=== PATIENT | male | born 1965 | race Caucasian/White ===

== ENCOUNTER 2021-12-04 20:30 | Inpatient (IN) | payer OTHER ==
[2021-12-04 21:39] VITALS: BMI 27.9
[2021-12-05] MEDS ORDERED: IBUPROFEN 600 MG TABLET (FP) PO PRN (02:49)
[2021-12-05] MEDS ORDERED: IBUPROFEN 400 MG TABLET (FP) PO PRN (02:49)
[2021-12-05] MEDS ORDERED: LOPERAMIDE HCL 2 MG CAPSULE PO PRN (02:49)
[2021-12-05] MEDS ORDERED: chlordiazePOXIDE HCL 25 MG CAPSULE PO PRN (02:49)
[2021-12-05] MEDS ORDERED: MAGNESIUM CITRATE 300 ML BOTTLE PO PRN (02:49)
[2021-12-05] MEDS ORDERED: BENZOCAINE/MENTHOL (CHLORASEPTIC ) LOZENGE MM PRN (02:49)
[2021-12-05] MEDS ORDERED: ONDANSETRON *ODT* 4 MG TABLET SL PRN (02:49)
[2021-12-05] MEDS ORDERED: DICYCLOMINE HCL 10 MG CAPSULE PO PRN (02:49)
[2021-12-05] MEDS ORDERED: MAGNESIUM HYDROX 2400MG/30ML ORAL SUSPENSION 30 ML CUP PO PRN (02:49)
[2021-12-05] MEDS ORDERED: NICOTINE POLACRILEX 2 MG GUM BUC PRN (02:49)
[2021-12-05] MEDS ORDERED: cloNIDine HCL 0.1 MG TABLET PO PRN (02:49)
[2021-12-05] MEDS ORDERED: ACETAMINOPHEN 325 MG TABLET (FP) PO PRN ×2 (02:49)
[2021-12-05] MEDS ORDERED: BISMUTH SUBSALICYLATE 524 MG/30 ML PO PRN (02:49)
[2021-12-05] MEDS ORDERED: methaDONE HCL 10 MG TABLET (FOR DETOX USE ONLY) PO ONE (02:49)
[2021-12-05] MEDS ORDERED: MAG HYDROX/AL HYDROX/SIMETH 30 ML UNIT-DOSE CUP PO PRN (02:49)
[2021-12-05] MEDS: chlordiazePOXIDE HCL 25 MG CAPSULE PO SCH ×4 (06:22→22:37)
[2021-12-05] MEDS: PRENATAL VITAMINS W/ FOLIC ACID TABLET (FP) PO SCH (11:29)
[2021-12-05] MEDS: METHOCARBAMOL 500 MG TABLET PO PRN ×2 (11:29→18:16)
[2021-12-05] MEDS: NICOTINE 21 MG/24 HOURS TOPICAL PATCH TD SCH (11:30)
[2021-12-05] MEDS: LIDOCAINE 5% TOPICAL PATCH TP SCH (13:29)
[2021-12-05] MEDS: metFORMIN HCL 500 MG TABLET (FP) PO SCH (18:12)
[2021-12-05] MEDS: THIAMINE HCL 100 MG TABLET (FP) PO SCH (22:37)
[2021-12-05] MEDS: MELATONIN 5 MG TABLETS PO SCH (22:37)
[2021-12-05] MEDS: LIDOCAINE PATCH REMOVAL MC SCH (23:07)
[2021-12-06] MEDS: metFORMIN HCL 500 MG TABLET (FP) PO SCH ×2 (06:39→17:27)
[2021-12-06] MEDS: chlordiazePOXIDE HCL 25 MG CAPSULE PO SCH ×4 (06:40→22:27)
[2021-12-06 10:17] LABS: HEMATOCRIT 41.8 % (35.4-49); HEMOGLOBIN 13.7 GM/dL (11.7-16.9); MCHC 32.7 g/dl (32.0-35.9); MEAN CELL VOLUME 82.5 fl (80-96); MEAN PLT VOLUME 10.4 fl (7.5-11.1); PLATELET COUNT 135 10^3/uL (134-434); RBC 5.07 M/mm3 (4.00-5.60); RDW 13.9 % (11.9-15.9); WHITE BLOOD COUNT 5.6 K/mm3 (4.0-10.0)
[2021-12-06] MEDS: PRENATAL VITAMINS W/ FOLIC ACID TABLET (FP) PO SCH (10:25)
[2021-12-06] MEDS: LIDOCAINE 5% TOPICAL PATCH TP SCH (10:25)
[2021-12-06] MEDS: NICOTINE 21 MG/24 HOURS TOPICAL PATCH TD SCH (10:27)
[2021-12-06 10:28] LABS: BLOOD UREA NITROGEN 22.8 mg/dL (7-18); CREATININE 1.2 mg/dL (0.55-1.3)
[2021-12-06 10:29] LABS: BILIRUBIN,TOTAL 0.4 mg/dL (0.2-1); TOT PROT 6.2 g/dl (6.4-8.2)
[2021-12-06 10:31] LABS: CALCIUM 9.1 mg/dL (8.5-10.1)
[2021-12-06] MEDS: INSULIN (NOVOLOG) ASPART 100 UNITS/ML 10ML VIAL SQ SCH ×3 (11:36→22:27)
[2021-12-06] MEDS ORDERED: INSULIN (NOVOLOG) ASPART 100 UNITS/ML 10ML VIAL ONE (17:01)
[2021-12-06] MEDS: METHOCARBAMOL 500 MG TABLET PO PRN (17:28)
[2021-12-06] MEDS: THIAMINE HCL 100 MG TABLET (FP) PO SCH (22:27)
[2021-12-06] MEDS: MELATONIN 5 MG TABLETS PO SCH (22:27)
[2021-12-06] MEDS: LIDOCAINE PATCH REMOVAL MC SCH (22:29)
[2021-12-07] MEDS ORDERED: chlordiazePOXIDE HCL 10 MG CAPSULE PO PRN
[2021-12-07] MEDS ORDERED: INSULIN (NOVOLOG) ASPART 100 UNITS/ML 10ML VIAL ONE ×5 (05:40→21:07)
[2021-12-07] MEDS ORDERED: sitaGLIPtin PHOSPHATE 50 MG TABLET PO SCH (05:41)
[2021-12-07] MEDS: metFORMIN HCL 500 MG TABLET (FP) PO SCH ×2 (06:36→18:26)
[2021-12-07] MEDS: chlordiazePOXIDE HCL 10 MG CAPSULE PO SCH ×4 (06:36→22:56)
[2021-12-07] MEDS: INSULIN (NOVOLOG) ASPART 100 UNITS/ML 10ML VIAL SQ SCH ×4 (06:43→22:58)
[2021-12-07] MEDS ORDERED: methaDONE HCL 10 MG TABLET (FOR DETOX USE ONLY) PO ONE (10:00)
[2021-12-07] MEDS: PRENATAL VITAMINS W/ FOLIC ACID TABLET (FP) PO SCH (10:29)
[2021-12-07] MEDS: NICOTINE 21 MG/24 HOURS TOPICAL PATCH TD SCH (10:32)
[2021-12-07] MEDS: LIDOCAINE 5% TOPICAL PATCH TP SCH (10:32)
[2021-12-07] MEDS: METHOCARBAMOL 500 MG TABLET PO PRN (18:26)
[2021-12-07] MEDS: THIAMINE HCL 100 MG TABLET (FP) PO SCH (22:55)
[2021-12-07] MEDS: MELATONIN 5 MG TABLETS PO SCH (22:55)
[2021-12-07] MEDS: LIDOCAINE PATCH REMOVAL MC SCH (22:56)
[2021-12-08] MEDS ORDERED: chlordiazePOXIDE HCL 10 MG CAPSULE PO SCH (05:00)
[2021-12-08] MEDS: metFORMIN HCL 500 MG TABLET (FP) PO SCH (06:08)
[2021-12-08] MEDS ORDERED: INSULIN (NOVOLOG) ASPART 100 UNITS/ML 10ML VIAL ONE (08:04)
[2021-12-08] MEDS: INSULIN (NOVOLOG) ASPART 100 UNITS/ML 10ML VIAL SQ SCH (08:07)
[2021-12-08 09:31] VITALS: BP 142/92; PULSE 89; RESP 18; TEMP 97.3
[2021-12-08] MEDS: PRENATAL VITAMINS W/ FOLIC ACID TABLET (FP) PO SCH (10:11)
[2021-12-08] MEDS: NICOTINE 21 MG/24 HOURS TOPICAL PATCH TD SCH (10:11)
[2021-12-08] MEDS: METHOCARBAMOL 500 MG TABLET PO PRN (10:11)
[2021-12-08] MEDS: LIDOCAINE 5% TOPICAL PATCH TP SCH (10:13)
[2021-12-09] MEDS ORDERED: chlordiazePOXIDE HCL 10 MG CAPSULE PO ONE (05:00)
[2021-12-09] MEDS ORDERED: methaDONE HCL 10 MG TABLET (FOR DETOX USE ONLY) PO ONE (10:00)
== END 2021-12-08 11:40 | disposition left against medical advice (07) | DRG 894 ==
LOC: YASAS 20:30 → Y6N 23:35
PROVIDERS: ADMIT Allergy & Immunology; ATTEND Surgery
PROC: HZ2ZZZZ Detoxification Services for Substance Abuse Treatment (ICD-10-PCS; principal; 2021-12-04)
DX: F11.23 Opioid dependence with withdrawal (principal); F14.20 Cocaine dependence, uncomplicated; F10.230 Alcohol dependence with withdrawal, uncomplicated; F17.210 Nicotine dependence, cigarettes, uncomplicated; I10 Essential (primary) hypertension; E78.5 Hyperlipidemia, unspecified; E11.9 Type 2 diabetes mellitus without complications; Z79.84 Long term (current) use of oral hypoglycemic drugs; M54.50 Low back pain, unspecified; G89.29 Other chronic pain
CPT/HCPCS: 36415; 80053; 82962; 85027; 86780; 93005; 93010; C9803-CS; U0003; U0005